=== PATIENT | male | born 1970 | race Caucasian/White ===

== ENCOUNTER 2018-02-04 08:04 | Day surgery (SDC) | payer BC ==
[2018-01-31 15:48] VITALS: BMI 29.8
[~2018-02-04 08:04] MED LIST: LACTATED RINGERS 1,000 ML IV SCH; LIDOCAINE 1% 20 ML VIAL (10MG/ML) FOR IV START INTRADERMA PRN
[2018-02-04 08:31] VITALS: RESP 16; TEMP 97.2
[2018-02-04] MEDS ORDERED: LIDOCAINE 1% 20 ML VIAL (10MG/ML) FOR IV START INTRADERMA ONE (08:38)
[2018-02-04] MEDS ORDERED: PROPOFOL 10 MG/ML 20 ML VIAL IV ONE (09:16)
[2018-02-04] MEDS ORDERED: LIDOCAINE 1% INJ 10MG/ML (20 ML MDV) ONE (09:16)
--- NOTE | 2018-02-04 09:19 | P.GSHP ---
History of Present Illness H&P Date: 02/04/18 Chief Complaint: Diverticulitis This a 47-year-old male with history of diverticula is. Patient presents today for colonoscopy. Past Medical History Additional Past Medical History / Comment(s): DIVERTICULITIS History of Any Multi-Drug Resistant Organisms: None Reported Past Surgical History: No Surgical Hx Reported Past Anesthesia/Blood Transfusion Reactions: No Reported Reaction Additional Past Anesthesia/Blood Transfusion Reaction / Comment(s): NO PRIOR SX HX Smoking Status: Former smoker - Past Family History Mother Family Medical History: No Reported History Medications and Allergies Home Medications Medication Instructions Recorded Confirmed Type No Known Home Medications [No 01/31/18 02/04/18 History Known Home Medications] Allergies Allergy/AdvReac Type Severity Reaction Status Date / Time No Known Allergies Allergy Verified 02/04/18 08:33 Surgical - Exam Vital Signs Temp Pulse Resp BP 97.2 F L 54 L 16 139/85 02/04/18 08:30 02/04/18 08:30 02/04/18 08:30 02/04/18 08:30 - General well developed, no distress - Eyes PERRL - ENT normal pinna - Neck no masses - Respiratory normal expansion - Cardiovascular Rhythm: regular - Abdomen Abdomen: soft, non tender Assessment and Plan Assessment: Diverticulitis. We'll perform colonoscopy.
--- NOTE | 2018-02-04 09:31 | P.OP ---
Date of Procedure: 02/04/18 Preoperative Diagnosis: Diverticulitis Postoperative Diagnosis: Mild diverticulosis Procedure(s) Performed: Colonoscopy Anesthesia: MAC Surgeon: Naveen Holocmb Pathology: none sent Condition: stable Disposition: PACU Description of Procedure: Patient's placed on the endoscopy table in the lateral position. He received IV sedation. Digital rectal exam was performed which revealed no abnormalities. The flexible colonoscope was then placed patient anus passed throughout the entire colon. The ileocecal valve was visualized. The cecum, ascending and transverse colon appeared normal. In the descending and sigmoid colon there is mild diverticular changes. Scope summer back the rectum and this appeared normal. Scope was withdrawn for patient.
[2018-02-04 09:48] VITALS: BP 134/87; PULSE 57
== END 2018-02-04 10:08 | disposition home or self-care (01) ==
LOC: ORWHC2ENDO 08:04
PROVIDERS: ATTEND Surgery
DX: K57.92 Diverticulitis of intestine, part unspecified, without perforation or abscess without bleeding (principal); Z87.891 Personal history of nicotine dependence
CPT/HCPCS: 45378; J2001; J2704

== ENCOUNTER 2024-03-16 19:51 | Emergency (ER) | payer BC ==
[2024-03-16 20:25] VITALS: BP 125/86; PULSE 68; RESP 18; TEMP 98.3
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
[2024-03-16] MEDS: DIPH,PERTUS(ACELL)TETVAC-LF 0.5 ML VIAL IM ONE (20:53)
== END 2024-03-16 21:20 | disposition home or self-care (01) ==
LOC: EC 19:51
DX: S01.511A Laceration without foreign body of lip, initial encounter (principal); Z23 Encounter for immunization; W22.8XXA Striking against or struck by other objects, initial encounter
CPT/HCPCS: 90471; 90715; 99282